=== PATIENT | female | born 1925 | race Caucasian/White ===

== ENCOUNTER 2016-05-21 19:16 | Emergency (ER) | payer OTHER ==
[2016-05-21] MEDS ORDERED: Glucagon* 1 MG VIAL IM ONE (19:38)
--- NOTE | 2016-05-21 19:54 | ED ---
Adan Joiner Billy, scribed for Raad Dao MD on 05/21/16 at 1939 . GI/ HPI - HPI Summary HPI Summary: Patient is an 89 year-old female coming to [facility] for evaluation of a foreign body sensation in her esophagus tonight. Patient states that she was out for dinner when she swallowed some rice and felt it stuck in her throat at approximately 1800. She states that she is able to drink fluids. She also states that the sensation is improving since onset, and she feels the object traveling lower in her esophagus. - History of Current Complaint Chief Complaint: EDForeignBodyEsophag Time Seen by Provider: 05/21/16 19:38 Stated Complaint: FOOD STUCK IN ESOPHAGUS Hx Obtained From: Patient Onset/Duration: Started Hours Ago, Still Present Timing: Constant Severity: Moderate Current Severity: Moderate Pain Intensity: 0 Pain Characteristics: Other: - Foreign body Associated Signs and Symptoms: Negative: Abdominal Pain Foreign Body: Esophageal Aggravating Factor(s): Nothing Alleviating Factor(s): Nothing - Allergy/Home Medications Allergies/Adverse Reactions: Allergies Allergy/AdvReac Type Severity Reaction Status Date / Time Prednisone Allergy Agitation Verified 09/24/14 09:59 Penicillins [PCN] AdvReac Intermediate GI Upset Verified 09/24/14 09:59 PMH/Surg Hx/FS Hx/Imm Hx Cardiovascular History: Reports: Hx Hypertension - WELL CONTROLLED Sensory History: Reports: Hx Cataracts, Hx Contacts or Glasses, Hx Glaucoma - BILAT, Hx Hearing Aid - LEFT Opthamlomology History: Reports: Hx Cataracts, Hx Contacts or Glasses, Hx Glaucoma - BILAT Psychiatric History: Reports: Hx Anxiety - Surgical History Surgery Procedure, Year, and Place: 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 TUBAL LIGATION 1971 Hx Anesthesia Reactions: No Infectious Disease History: Yes Infectious Disease History: Denies: Traveled Outside the [place] in Last 30 Days - Family History Family History: Parents without any known ailments, son with glaucoma. - Social History Alcohol Use: None Substance Use Type: Reports: None Smoking Status (MU): Former Smoker Length of Time of Smoking/Using Tobacco: 15 YRS Have You Smoked in the Last Year: No Review of Systems Negative: Fever Positive: Other - foreign body sensation in esophagus All Other Systems Reviewed And Are Negative: Yes Physical Exam Triage Information Reviewed: Yes Vital Signs On Initial Exam: Initial Vitals Temp Pulse Resp BP Pulse Ox 96.7 F 78 16 156/78 100 05/21/16 19:20 05/21/16 19:20 05/21/16 19:20 05/21/16 19:20 05/21/16 19:20 Vital Signs Reviewed: Yes Appearance: Positive: Well-Appearing - anxious Skin: Positive: Warm Eyes: Positive: [place] ENT: Positive: Hearing grossly normal, Pharynx normal Neck: Positive: Supple Respiratory/Lung Sounds: Positive: Clear to Auscultation, Breath Sounds Present Cardiovascular: Positive: RRR Abdomen Description: Positive: Nontender, Soft Bowel Sounds: Positive: Present Musculoskeletal: Positive: Strength/ROM Intact Psychiatric: Positive: Affect/Mood Appropriate Diagnostics - Vital Signs Vital Signs Temp Pulse Resp BP Pulse Ox 05/21/16 19:20 96.7 F 78 16 156/78 100 - Laboratory Lab Statement: Any lab studies that have been ordered have been reviewed, and results considered in the medical decision making process. Re-Evaluation - Re-Evaluation First Eval Re-Evaluation Time: 21:29 Change: Unchanged Second Eval Re-Evaluation Time: 21:57 Change: Unchanged Comment: Patient has elected to sign out AMA. The risks of doing so, and the importance of seeking immediate specialist care for her symptoms, were explained to the patient in detail. Still, the patient states that she will assume these risks and refuses to be transferred to [facility]. Third Eval Re-Evaluation Time: 22:11 Change: Unchanged Comment: Patient has changed her mind and will be agreeable to transfer. GIGU Course/Dx - Diagnoses Provider Diagnoses: Esophageal foreign body - Physician Notifications Discussed Care Of Patient With: Dr. Thorne ([facility]) @ 2121: accepts transfer. Instructed by Provider To: Transfer Reason For Transfer: [place] [facility] [place] Discharge - Discharge Plan Condition: Stable Disposition: TRANS HIGHER LVL OF CARE FAC Referrals: Kate Oquendo [Primary Care Provider] - The documentation as recorded by the Adan taveras Billy accurately reflects the service I personally performed and the decisions made by me, Raad Dao MD.
[2016-05-21] MEDS ORDERED: LORazepam INJ* 2 MG/ML 1 ML VIAL IV PUSH ONE (22:21)
[2016-05-21 23:17] VITALS: BP 141/82
== END 2016-05-21 23:08 | disposition short-term general hospital (02) ==
LOC: ED 19:16
DX: T18.128A Food in esophagus causing other injury, initial encounter (principal); X58.XXXA Exposure to other specified factors, initial encounter; Y92.9 Unspecified place or not applicable; I10 Essential (primary) hypertension; Z87.891 Personal history of nicotine dependence
CPT/HCPCS: 96372; 96374; 99283; J1610; J2060